=== PATIENT | male | born 1940 | race Caucasian/White ===

== ENCOUNTER 2021-09-15 12:15 | Emergency (ER) | payer OTHER ==
[~2021-09-15] VITALS: Ht 182.9 cm; Wt 83.9 kg
[~2021-09-15 12:15] MED LIST: ASCO500 PO; CALCA500CH PO; CHLO500 PO; CODACE30 PO; DAILY MULTIPLE1 EACH PO; Doxazosin Mesyla8 MG PO; Excedrin Extra1 EACH; GABA100 PO; HYDR1TAB94 PO; Hydrochlorothia25 MG; IBUP800 PO; Nasal Spray30 ML; PROBIOTIC1 EAC1 PO; STOOL SOFTENER1 EAC1 PO; TAMS.4ER PO
[2021-09-15 12:51] LABS: BASOPHILS ABSOLUTE AUTO 0.04 K/mm3 (0.00-0.23); BASOPHILS PERCENT AUTO 1 % (0-2); EOSINOPHILS PERCENT AUTO 2 % (0-6); Hematocrit 22.9 % (37.0-53.0); Hemoglobin 6.9 g/dL (13.5-17.5); IMMATURE GRAN ABSOLUTE AUTO 0.02 K/mm3 (0.00-0.10); IMMATURE GRAN PERCENT AUTO 0 % (0-1); LYMPHOCYTES PERCENT AUTO 19 % (21-46); MONOCYTES ABSOLUTE AUTO 0.76 K/mm3 (0.16-1.47); MONOCYTES PERCENT AUTO 12 % (4-13); Mean Corpuscular HGB 22.5 pg (26.0-34.0); Mean Corpuscular HGB Conc 30.1 g/dL (31.5-36.5); Mean Corpuscular Volume 75 fL (80-100); Mean Platelet Volume 8.8 fL (9.1-12.4); NEUTROPHILS ABSOLUTE AUTO 4.05 K/mm3 (1.96-9.15); NEUTROPHILS PERCENT AUTO 66 % (41-73); Platelet Count 421 K/mm3 (150-400); RDW Coefficient Variation 15.5 % (11.7-14.2); RDW Standard Deviation 42.5 fL (35.1-46.3); Red Blood Cell Count 3.06 M/mm3 (4.30-5.90); White Blood Cell Count 6.17 K/mm3 (4.00-11.30)
[2021-09-15 13:16] LABS: Alanine Aminotransfer (ALT/SGP 25 U/L (12-78); Albumin, Blood 3.2 g/dL (3.4-5.0); Albumin/Globulin Ratio 0.7 (0.8-1.8); Alk Phos 148 U/L (50-136); Anion Gap 5 mmol/L (6-16); Aspartate Aminotrans (AST/SGOT 16 U/L (12-37); Bilirubin, Total 0.4 mg/dL (0.1-1.0); Blood Urea Nitrogen 20 mg/dL (8-24); Bun/Creatinine Ratio 22.9 (12.0-20.0); CO2, Blood 25 mmol/L (21-32); Calcium, Blood 8.9 mg/dL (8.5-10.1); Chloride, Blood 111 mmol/L (98-108); Creatinine, Blood 0.88 mg/dL (0.60-1.20); Globulin, Blood 4.3 g/dL (2.2-4.0); Glomerular Filtration Rate >60 (60-); Glucose, Blood 82 mg/dL (70-99); Sodium, Blood 141 mmol/L (136-145); Total Protein, Blood 7.5 g/dL (6.4-8.2)
[2021-09-15 13:33] LABS: International Normalized Ratio 1.1; Prothrombin Time Results 11.5 Sec (9.7-11.5)
[2021-09-15] MEDS ORDERED: MOBIC15 MG PO (14:02)
[2021-09-15 15:03] LABS: Ferritin, Serum 6 ng/mL (26-388); Iron Serum 11 ug/dL (65-175); Total Iron Binding Capacity 367 ug/dL (250-450)
[2021-09-15 15:26] LABS: Troponin I <0.015 ng/mL (0.000-0.040)
[2021-09-15] MEDS ORDERED: FERSU300 PO (15:31)
[2021-09-15] MEDS ORDERED: ASCO500 PO (15:31)
== END 2021-09-15 17:35 | disposition home or self-care (01) ==
LOC: ER 12:15
PROVIDERS: Physician Assistant
DX: D50.9 Iron deficiency anemia, unspecified (principal); I10 Essential (primary) hypertension; Z79.899 Other long term (current) drug therapy; Z79.82 Long term (current) use of aspirin
CPT/HCPCS: 36415; 36430; 80053; 82272; 82607; 82728; 82746; 83540; 83550; 84484; 85025; 85610; 86850; 86900; 86901; 86923; 93005; 93010; 99284-25; J7030; P9016

== ENCOUNTER 2021-10-27 11:08 | Day surgery (SDC) | payer OTHER ==
[~2021-10-27] VITALS: Ht 182.9 cm; Wt 80.7 kg
[~2021-10-27 11:08] MED LIST changes: +AFRIN15 M1; +CENTRUM SILVER1 EAC2 PO; +Cardura Xl8 MG PO; +FERSU300 PO; +LACT PO; +MOBIC15 MG PO; +SENNA LAXATIVE8.6 MG PO
== END 2021-10-27 14:20 | disposition home or self-care (01) ==
LOC: ORSCSDS 11:08
PROVIDERS: Internal Medicine Gastroenterology
PROC: 0DB98ZX Excision of Duodenum, Via Natural or Artificial Opening Endoscopic, Diagnostic (ICD-10-PCS; principal; 2021-10-27 12:30)
PROC: 0DJD8ZZ Inspection of Lower Intestinal Tract, Via Natural or Artificial Opening Endoscopic (ICD-10-PCS; principal; 2021-10-27 12:30)
PROC: 0DB78ZX Excision of Stomach, Pylorus, Via Natural or Artificial Opening Endoscopic, Diagnostic (ICD-10-PCS; principal; 2021-10-27 12:30)
PROC: 0DB58ZX Excision of Esophagus, Via Natural or Artificial Opening Endoscopic, Diagnostic (ICD-10-PCS; principal; 2021-10-27 12:30)
DX: D50.9 Iron deficiency anemia, unspecified (principal); Z86.010 Personal history of colon polyps; K57.30 Diverticulosis of large intestine without perforation or abscess without bleeding; K29.80 Duodenitis without bleeding; K64.8 Other hemorrhoids; I10 Essential (primary) hypertension; Z79.899 Other long term (current) drug therapy; Z79.82 Long term (current) use of aspirin
CPT/HCPCS: 88305; 88342; J2704; J7120

== ENCOUNTER → 2022-04-13 | Outpatient (CLI) | payer OTHER | END | disposition home or self-care (01) | LOC: LAB SHORT 17:56 → LAB 17:56 | DX: N39.0 Urinary tract infection, site not specified (principal) | CPT/HCPCS: 87077; 87086; 87186 ==

== ENCOUNTER 2022-05-18 09:32 | Day surgery (SDC) | payer OTHER ==
[~2022-05-18] VITALS: Ht 182.9 cm; Wt 86.1 kg
[~2022-05-18 09:32] MED LIST changes: +DOCUZEN 8.6-501 EACH PO; +EXTRA PAIN REL1 EAC2 PO; +OMEP20ER PO
== END 2022-05-18 11:20 | disposition home or self-care (01) ==
LOC: ORSCSDS 09:32
PROVIDERS: Internal Medicine Gastroenterology
PROC: 0DB68ZX Excision of Stomach, Via Natural or Artificial Opening Endoscopic, Diagnostic (ICD-10-PCS; principal; 2022-05-18 11:00)
PROC: 0DB58ZX Excision of Esophagus, Via Natural or Artificial Opening Endoscopic, Diagnostic (ICD-10-PCS; principal; 2022-05-18 11:00)
DX: D50.9 Iron deficiency anemia, unspecified (principal); K21.00 Gastro-esophageal reflux disease with esophagitis, without bleeding; I10 Essential (primary) hypertension; K29.70 Gastritis, unspecified, without bleeding; J45.909 Unspecified asthma, uncomplicated; Z79.82 Long term (current) use of aspirin; Z79.899 Other long term (current) drug therapy
CPT/HCPCS: 88305; 88312; 88341; 88342; J2704; J7120

== ENCOUNTER 2023-07-05 12:28 | Day surgery (SDC) | payer OTHER ==
[~2023-07-05] VITALS: Ht 182.9 cm; Wt 85.1 kg
[2023-07-05] MEDS ORDERED: FERSU300 PO (13:08)
[2023-07-05] MEDS ORDERED: ASCO500 (13:08)
[2023-07-05] MEDS ORDERED: HYDROCODONE-AC1 EA19 PO (13:09)
[2023-07-05] MEDS ORDERED: Acetaminophen325 M1 (13:09)
--- NOTE | 2023-07-05 14:18 | NUR ---
07/05/23 1418 Radha Galan IV DISCONTINUED, WNL, GAUZE AND COBAN IN PLACE.
[2023-07-05 14:20] VITALS: BP 160/77
== END 2023-07-05 14:15 | disposition home or self-care (01) ==
LOC: ORSCSDS 12:28
PROVIDERS: Internal Medicine Gastroenterology
PROC: 0DB48ZX Excision of Esophagogastric Junction, Via Natural or Artificial Opening Endoscopic, Diagnostic (ICD-10-PCS; principal; 2023-07-05 13:45)
PROC: 0DB68ZX Excision of Stomach, Via Natural or Artificial Opening Endoscopic, Diagnostic (ICD-10-PCS; principal; 2023-07-05 13:45)
DX: D50.9 Iron deficiency anemia, unspecified (principal); K57.30 Diverticulosis of large intestine without perforation or abscess without bleeding; K44.9 Diaphragmatic hernia without obstruction or gangrene; K29.50 Unspecified chronic gastritis without bleeding; K20.90 Esophagitis, unspecified without bleeding; Z79.82 Long term (current) use of aspirin; Z79.899 Other long term (current) drug therapy
CPT/HCPCS: 88305; 88312; 88342; J2704; J7120

== ENCOUNTER → 2025-01-29 | Outpatient (CLI) | payer OTHER ==
[~2025-01-29] MED LIST changes: +ASCO500; +Acetaminophen325 M1; +HYDROCODONE-AC1 EA19 PO
[2025-01-29 15:09] LABS: Stool Occult Bld Immuno 1 Positive (NEGATIVE)
== END ==
LOC: LAB 10:45 → LAB SHORT 10:45
PROVIDERS: Family Medicine
DX: D64.9 Anemia, unspecified (principal)
CPT/HCPCS: 82274

== ENCOUNTER 2025-03-01 08:45 | Day surgery (SDC) | payer OTHER ==
[~2025-03-01] VITALS: Ht 182.9 cm; Wt 180.2 kg
[~2025-03-01 08:45] MED LIST changes: +Lactated Ringer's 1,000 ML IV ONE; +propofoL 50 ML IV ONE
--- NOTE | 2025-03-01 09:35 | NUR ---
03/01/25 0935 Radha Galan MA GAVE , ANDREIA, ORIGINAL ADVANCED DIRECTIVE IN PRE-OP ROOM.
[2025-03-01] MEDS ORDERED: Lactated Ringer's 1,000 ML IV ONE (09:40)
[2025-03-01 11:18] VITALS: BP 134/69
== END 2025-03-01 11:35 | disposition home or self-care (01) ==
LOC: ORSCSDS 08:45
PROVIDERS: Internal Medicine Gastroenterology
PROC: 0DB98ZX Excision of Duodenum, Via Natural or Artificial Opening Endoscopic, Diagnostic (ICD-10-PCS; principal; 2025-03-01 10:00)
PROC: 0DB68ZX Excision of Stomach, Via Natural or Artificial Opening Endoscopic, Diagnostic (ICD-10-PCS; principal; 2025-03-01 10:00)
DX: D50.0 Iron deficiency anemia secondary to blood loss (chronic) (principal); Z87.11 Personal history of peptic ulcer disease; K92.1 Melena; R19.4 Change in bowel habit; K44.9 Diaphragmatic hernia without obstruction or gangrene; K31.1 Adult hypertrophic pyloric stenosis
CPT/HCPCS: 88305; 88342; J2704; J7120

== ENCOUNTER 2025-06-10 16:30 | Emergency (ER) | payer OTHER ==
[~2025-06-10] VITALS: Ht 182.9 cm; Wt 72.6 kg
[~2025-06-10 16:30] MED LIST changes: -Lactated Ringer's 1,000 ML IV ONE; -propofoL 50 ML IV ONE
[2025-06-10 17:00] LABS: BASOPHILS ABSOLUTE AUTO 0.04 K/mm3 (0.00-0.23); BASOPHILS PERCENT AUTO 0 % (0-2); EOSINOPHILS ABSOLUTE AUTO 0.07 K/mm3 (0.00-0.68); EOSINOPHILS PERCENT AUTO 1 % (0-6); Hematocrit 26.8 % (37.0-53.0); Hemoglobin 8.0 g/dL (13.5-17.5); IMMATURE GRAN ABSOLUTE AUTO 0.05 K/mm3 (0.00-0.10); IMMATURE GRAN PERCENT AUTO 0 % (0-1); LYMPHOCYTES ABSOLUTE AUTO 1.86 K/mm3 (0.84-5.20); LYMPHOCYTES PERCENT AUTO 14 % (21-46); MONOCYTES ABSOLUTE AUTO 1.67 K/mm3 (0.16-1.47); MONOCYTES PERCENT AUTO 12 % (4-13); Mean Corpuscular HGB Conc 29.9 g/dL (31.5-36.5); Mean Corpuscular Volume 74 fL (80-100); NEUTROPHILS ABSOLUTE AUTO 9.86 K/mm3 (1.96-9.15); NEUTROPHILS PERCENT AUTO 73 % (41-73); NRBC ABSOLUTE 0.00 K/mm3 (0.00-0.02); NRBC Auto 0.0 /100 WBC (0.0-0.2); Platelet Count 458 K/mm3 (150-400); RDW Coefficient Variation 16.8 % (11.7-14.2); RDW Standard Deviation 44.6 fL (35.1-46.3)
[2025-06-10 17:19] LABS: Alanine Aminotransfer (ALT/SGP 16.0 U/L (12-78); Albumin, Blood 3.5 g/dL (3.4-5.0); Albumin/Globulin Ratio 0.9 (0.8-1.8); Anion Gap 6.0 mmol/L (3-11); Aspartate Aminotrans (AST/SGOT 14.0 U/L (12-37); Bilirubin, Total 0.6 mg/dL (0.1-1.0); Blood Urea Nitrogen 13.0 mg/dL (8-24); CO2, Blood 27.0 mmol/L (21-32); Calcium, Blood 8.9 mg/dL (8.5-10.1); Chloride, Blood 106.0 mmol/L (98-108); Creatinine, Blood 0.85 mg/dL (0.60-1.20); Globulin, Blood 4.0 g/dL (2.2-4.0); Glucose, Blood 108.0 mg/dL (70-99); Potassium, Blood 3.6 mmol/L (3.5-5.5); Sodium, Blood 135.0 mmol/L (136-145); Total Protein, Blood 7.5 g/dL (6.4-8.2)
[2025-06-10 18:15] VITALS: BP 156/87
== END 2025-06-10 19:09 | disposition home or self-care (01) ==
LOC: ER 16:30
PROVIDERS: Emergency Medicine
DX: S01.81XA Laceration without foreign body of other part of head, initial encounter (principal); W18.30XA Fall on same level, unspecified, initial encounter; Z79.899 Other long term (current) drug therapy
CPT/HCPCS: 12011; 70450; 72125; 80053; 85025; 90471; 90715; 93005; 93010; 99284-25